=== PATIENT | female | born 1970 | race Caucasian/White ===

== ENCOUNTER 2019-09-22 19:25 | Emergency (ER) | payer MEDICAID ==
[~2019-09-22] VITALS: Ht 152.4 cm; Wt 59.0 kg
[2019-09-22 19:28] VITALS: Ht 152.4 cm; Wt 59.0 kg
[2019-09-22 23:08] VITALS: BP 135/80
== END 2019-09-22 23:10 | disposition home or self-care (01) ==
LOC: ED 19:25
DX: S16.1XXA Strain of muscle, fascia and tendon at neck level, initial encounter (principal); M79.10 Myalgia, unspecified site; I10 Essential (primary) hypertension; V49.88XA Car occupant (driver) (passenger) injured in other specified transport accidents, initial encounter; Y93.I9 Activity, other involving external motion; Y92.413 State road as the place of occurrence of the external cause; Y99.8 Other external cause status
CPT/HCPCS: J1885; Q0162